=== PATIENT | female | born 1985 | race Caucasian/White ===

== ENCOUNTER 2024-07-16 17:32 | Observation (INO) | payer BC, SELFPAY ==
[2024-07-16 10:31] VITALS: BP 108/75
[2024-07-16 11:26] VITALS: BMI 18.7
--- NOTE | 2024-07-16 11:32 | ED.GENMED ---
History of Present Illness
General
Chief Complaint: Anal/Rectal Problem
Source: patient
Time Seen by Provider: 07/16/24 11:10
History of Present Illness
History of Present Illness:
39-year-old female presenting to the emergency department at the request of colorectal surgery for evaluation of severe pain from external thrombosed hemorrhoids. At the office today there was attempts to excise the hemorrhoid however patient was
unable to tolerate. Ultimately patient was sent to the ER to be taken to the OR later today for further treatment. Patient is endorsing 15 out of 10 pain, did not take any for pain prior to arrival. No other concerns presently.
Past History
Past History
ED Past Medical History: Other (Factor V Leiden)
ED Past Surgical History: Orthopedic and Tonsilectomy
Social History
Tobacco: Non-smoker
Alcohol: None
Drug: None
Personal:
Living: with family
Employment: Employed
Review of Systems
Review of Systems
All Other Systems: ROS reviewed and negative except as documented in HPI and ROS
Phy Exam
Physical Exam
Physical Exam:
GENERAL: Alert , in no apparent distress
EYE: conjunctiva clear
Head: Normocephalic atraumatic
NECK: Supple,
ENT: mmm.
LUNGS: no acute respiratory distress
RECTAL: Exam deferred as this would not change patient's treatment plan or disposition
NEUROLOGICAL: Alert and oriented
SKIN: Warm and dry, skin intact.
MUSCULOSKELETAL: well perfused.
PSYCH: Normal and appropriate interaction.
Scores
Heart Failure Risk
Heart Failure Risk Score: Not Applicable
Heart Score for Chest Pain Patients
STEMI patient?: Not applicable
Withdrawal Assessment of Alcohol
Withdrawal Assessment Completed?: Not applicable
Course
Orders/Labs/Results
Orders:
Orders
07/16/24 11:32
Type+Screen Urgent
Basic Metabolic Panel Urgent
Complete Blood Count/With Diff Urgent
PTT Urgent
Prothrombin Time Urgent
07/16/24 11:36
Ketorolac [Toradol] 30 mg IV NOW STA
07/16/24 11:47
ABO2 Urgent
BBK Wristband Number:
Associate notified that ABO2 has been ordered: [id number]
Date: 07/16/24
Time: 11:42
College Dean ID: [id number]
Abnormal Lab Results
07/16/24
11:32
WBC 4.3 L 10^3/uL
(4.8-10.8)
RBC 3.86 L 10^6/uL
(4.20-5.40)
MCV 105.2 H fL
(81.0-99.0)
MCH 36.3 H pg
(27.0-31.0)
07/16/24 11:32
07/16/24 11:32
Vital Signs
Initial and Last Documented VS:
Initial Vital Signs
Temp Pulse Resp BP Pulse Ox
99.0 F 74 16 108/75 98
07/16/24 10:31 07/16/24 10:31 07/16/24 10:31 07/16/24 10:31 07/16/24 10:31
Last Documented Vital Signs
Temp Pulse Resp BP Pulse Ox
99.0 F 74 16 108/75 98
07/16/24 10:31 07/16/24 10:31 07/16/24 10:31 07/16/24 10:31 07/16/24 10:31
MDM/Problems Addressed
MDM/Problems Addressed:
Patient presenting to the ER at the request of colorectal surgery who attempted to excise external hemorrhoids in office however patient unable to tolerate so sent to the ER to be taken to the OR later today. Patient advised to remain n.p.o.
Preoperative labs ordered. Toradol ordered for pain control. Colorectal aware patient in the ER
*Pulse Oximetry
Patient hypoxic: no
*Critical Care Note
Total Time (30-74mins, 75-104mins- exclusive of procedures): Not Applicable
Patient Management
Discussion with other providers: [employer]
ED Attending Note
-
Portions of this chart may have been created with voice recognition software.� Occasional wrong word or��sound alike� substitutions may have occurred due to the inherent limitations of voice recognition software.
Discharge Plan
Departure
Patient Disposition: OR
Date of Disposition: 07/16/24
Time of Disposition: 11:32
Presentation/result/management discussed w/ accepting MD/DO: Ema
Discharge Problem:
External thrombosed hemorrhoids
Prescriptions:
No Action
calcium polycarbophil [FiberCon] 625 mg Tablet
1,875 mg PO DAILY
ibuprofen [Advil] 200 mg Tablet
400 mg PO Q6HPRN PRN (Reason: mild pain)
levocetirizine [Xyzal] 5 mg Tablet
5 mg PO DAILYPRN PRN (Reason: allergies)
Nurtec ODT 75 mg Tablet,Disintegrating
75 mg PO DAILYPRN PRN (Reason: mirgraines)
Referrals:
Sammie Fontaine PA-C [Family Provider] -
Interventions
Interventions:
*Risk Screen - Suicide Last Done: 07/16/24 10:31
*General Assessment Last Done: 07/16/24 11:29
*Neglect/Abuse Screening Last Done: 07/16/24 10:31
*ED COVID-19 Vaccine History Last Done: 07/16/24 11:29
Discharge Date and Time
Print Language: RWANDAN
[2024-07-16] MEDS: TORADOL 30 MG IV (11:38)
[2024-07-16 11:54] LABS: INR 1.03; PT 13.9 Sec (11.4-14.6)
[2024-07-16 11:55] LABS: APTT 30.4 Sec (23.4-35.0)
[2024-07-16 11:56] LABS: % Basophils 0.9 % (0-2); % Eosinophils 3.2 % (0-6); % Immature Granulocytes 0.2 % (0-0.5); % Lymphocytes 27.9 % (20.5-51.1); % Monocytes 8.8 % (1.7-9.3); Absolute Eosinophils 0.1 10^3/uL (0-0.7); Absolute Lymphocytes 1.2 10^3/uL (1.2-3.4); Absolute Monocytes 0.4 10^3/uL (0.1-0.6); Absolute Neutrophils 2.6 10^3/uL (1.4-6.5); Hematocrit 40.6 % (37.0-47.0); Mean Corp Hgb Conc. 34.5 g/dL (33.0-37.0); Mean Corpuscular Hgb 36.3 pg (27.0-31.0); Mean Corpuscular Volume 105.2 fL (81.0-99.0); Mean Platelet Volume 9.3 fL (7.4-10.4); Nucleated Red Blood Cells % 0 %; Platelet Count 256 10^3/uL (130-400); Red Blood Cell Count 3.86 10^6/uL (4.20-5.40); Red Cell Dist. Width 11.6 % (11.5-14.5); White Blood Cell Count 4.3 10^3/uL (4.8-10.8)
[2024-07-16 12:03] LABS: Blood Urea Nitrogen 11 mg/dl (7-17); Calcium 9.5 mg/dl (8.4-10.2); Carbon Dioxide 28 mmol/L (22-30); Chloride 105 mmol/L (98-107); Estimated Creatinine Clearance 87 ml/min; Glucose 95 mg/dl (70-99); Potassium 4.2 mmol/L (3.5-5.1); Sodium 142 mmol/L (135-145); eGFR > 60.00
--- NOTE | 2024-07-16 13:23 | HPS.HSE ---
Family Physician
-
Family Physician: Sammie Fontaine PA-C
Chief Complaint
-
anal pain
History of Present Illness
39-year-old female presents today for a follow-up in clinic. Prior to this she was seen in October 2023 where she was undergoing treatment for an anal fissure.� She was prescribed nifedipine and lidocaine ointment and her symptoms resolved.
The patient states about 4 weeks ago she developed sharp pain in her anal area.�The past week it has been constant. She is not having bleeding.� She has not tried any creams or ointments.� Her bowel movements are more loose than normal.� She feels
like she has incomplete evacuation.� She is having a colonoscopy.� She is on any blood thinners.� She is a family of rectal or colon cancer. She was found to have two external thrombosed hemorrhoids on exam and was not able to tolerate an excision.
She was sent to the ER for surgery.
Medical History
Past Medical History
Past Medical History: Reports Other (Acid reflux, factor V Leiden)
Past Surgical History: Reports Other (Tonsillectomy, bunionectomy, right shoulder surgery, Achilles repair, blepharoplasty)
Social History
Tobacco: Former Smoker
Family History
Family History: Not pertinent
Allergies / Home Medications
Allergies reflects when Allergies were last updated in [employer].
Home Medications with original date entered in [employer]
Allergy/Medication List:
Allergies: None
Medications:
Fiber gummy
Nurtec
Pataday
Review of Systems
-
History Source: Patient
A 12 point ROS was completed and negative except as noted: Yes
Abdomen/GI: Reports Other (anal pain)
Physical Exam
Vital Signs
Vital Signs
Temp Pulse Resp BP Pulse Ox
99.0 F 74 16 108/75 98
07/16/24 10:31 07/16/24 10:31 07/16/24 10:31 07/16/24 10:31 07/16/24 10:31
Physical Exam
General: Well Developed, Well Nourished and No Apparent Distress
GI: Soft, Non Tender and Non Distended
Rectal: Hemorrhoids (two thrombosed external hemorrhoids, unable to perform JANET due to pain)
Neuro: AO x 3
Psych: Anxious
Laboratory Results
-
07/16/24 11:32
07/16/24 11:32
Laboratory Results
PT 13.9 Sec (11.4-14.6) 07/16/24 11:32
INR 1.03 07/16/24 11:32
APTT 30.4 Sec (23.4-35.0) 07/16/24 11:32
Data Reviewed
-
Lab Data: Labs Reviewed by me
Impression/Plan
-
IMPRESSION: 39-year-old female with anal pain found to have 2 externally thrombosed hemorrhoids
PLAN:
-Plan for excision of thrombosed hemorrhoids today by Dr. Boo
-Remain n.p.o.
-Preop lab work ordered
[2024-07-16 15:29] VITALS: BP 105/70
[2024-07-16 16:44] VITALS: BP 101/68
[2024-07-16 17:40] VITALS: BMI 18.3
[2024-07-16 17:41] VITALS: BP 94/63
[2024-07-16] MEDS: TORADOL 10 MG IV (18:35)
[2024-07-16] MEDS: NSS 1000 IV (18:36)
[2024-07-16 23:24] VITALS: BP 95/56
[2024-07-17] VITALS (7 sets, daily range): BP systolic 81–102; BP diastolic 49–90
[2024-07-17] MEDS: TORADOL 10 MG IV ×3 (00:32→12:31)
--- NOTE | 2024-07-17 09:09 | W.IMMPOSTOP ---
Surgical Immed Post Op Note
-
Primary Surgeon: Tari Boo MD
Assisting Surgeon: none
Pre-op Diagnosis: thrombosed external hemorrhoid(s)
Post-op Diagnosis: 1) solitary posterior hemorrhoid 2) superficial posterior midline anal fissure
Procedure Performed: 1) single quadrant hemorrhoidectomy 2) anal chemodenervation with Botox
Anesthesia Type: MAC plus local
Specimen / Cultures: none
Estimated Blood Loss: 5 cc
Complications: no immediate
Operative Findings: same as postop diagnosis
Will send back to floor and discharge from there.
--- NOTE | 2024-07-17 12:39 | CM ---
Patient who is s/p hemorrhoidectomy.
Met with patient and ;
the patient resides with her in a 2 story house.
She was independent in ADLs and ambulation.
The patient has no DME or prior VN.
PCP - Sammie Fontaine
Pharmacy - [facility]
The patient says she feels ready for d/c today.
will provide transport home.
No CM d/c needs identified.
Plan home today.
--- NOTE | 2024-07-17 16:15 | W.DCSUMMARY ---
Discharge Summary
Discharge Data
Date of Admission: 07/16/24
Date of Discharge: 07/17/24
-
Pending Results: No
Hospital Course
39 yo female presenting with thrombosed external hemorrhoids who presented for management through the ED who was taken to the OR with solitary posterior hemorrhoid noted and superficial posterior midline anal fissure present. A single quadrant
hemorrhoidectomy was preformed and anal chemodenervation with Botox under anesthesia. She was discharged to home on antibiotics and analgesics with outpatient follow up planned in the coming weeks.
Discharge Plan
-
Patient Disposition: Home (Routine Discharge)
Discharge Diagnosis/Procedures: Hemorrhoidectomy and anal Botox
Condition: Good
Diet: As tolerated
Activity: No strenuous activity
Additional Activity: For a week
Driving Restrictions: For 3 days
Bathing Restrictions: starting tomorrow
Wound Care: See handout (also has detailed instructions)
Instructions: How to Do a Sitz Bath
Referrals:
Keyur Boo MD [Active] -
Sammie Fontaine PA-C [Family Provider] -
Prescriptions:
New
sulfamethoxazole-trimethoprim 800-160 mg tablet
1 tab PO Q12H Qty: 10 0RF
tramadol 50 mg tablet
25 - 50 mg PO Q6HPRN PRN (Reason: severe pain/breakthrough pain) Qty: 15 0RF
Continued
calcium polycarbophil [FiberCon] 625 mg Tablet
1,875 mg PO DAILY
ibuprofen [Advil] 200 mg Tablet
400 mg PO Q6HPRN PRN (Reason: mild pain)
levocetirizine [Xyzal] 5 mg Tablet
5 mg PO DAILYPRN PRN (Reason: allergies)
Nurtec ODT 75 mg Tablet,Disintegrating
75 mg PO DAILYPRN PRN (Reason: mirgraines)
Discharge Orders:
Discharge Patient (As Directed); Ordered 07/17/24
Ordered By: Sarah Beth Tanner
Discharge Date and Time
Discharge Date/Time: 07/17/24 12:50
Print Language: KAZAKH
== END 2024-07-17 12:50 | disposition home or self-care (01) ==
LOC: 3 WEST ACU 17:32
PROVIDERS: Physician Assistant Medical; ADMITTING PHYSICIAN Surgery; EMERGENCY PHYSICIAN Emergency Medicine; FAMILY PHYSICIAN Physician Assistant
DX: K64.8 Other hemorrhoids (principal); K64.5 Perianal venous thrombosis; K60.2 Anal fissure, unspecified; D68.51 Activated protein C resistance; K21.9 Gastro-esophageal reflux disease without esophagitis; K64.4 Residual hemorrhoidal skin tags; Z87.891 Personal history of nicotine dependence
CPT/HCPCS: 46260; 88304; 80048; 85025; 85610; 85730; 86850; 86900; 86901; 96374; 99284; G0378; J0585

== ENCOUNTER → 2024-08-06 11:20 | Outpatient (REF) | payer BC, SELFPAY | LOC: RCS 11:20 | PROVIDERS: ATTENDING PHYSICIAN Internal Medicine Cardiovascular Disease; FAMILY PHYSICIAN Physician Assistant | DX: I95.1 Orthostatic hypotension (principal) | CPT/HCPCS: 93306 ==